=== PATIENT | male | born 1985 | race Caucasian/White ===

== ENCOUNTER 2018-09-24 20:50 | Emergency (ER) | payer BC ==
--- NOTE | 2018-09-24 21:08 | EDM.PDOC ---
ED HPI GENERAL MEDICAL PROBLEM - General Chief Complaint: Upper Extremity Injury/Pain Stated Complaint: JOINT PAIN Time Seen by Provider: 09/24/18 20:55 Source of Information: Reports: Patient History Limitations: Reports: No Limitations - History of Present Illness INITIAL COMMENTS - FREE TEXT/NARRATIVE: According to patient he claims that his knees and ankles have been hurting for past 3 days.rates is pain at 3/10. No swelling of the joints. Today he has been having pain in the nape of his neck and also back muscle hurts. 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 No fever or chills. 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 Pt was treated for lymes in 2014. Onset Date: 09/21/18 Duration: Day(s): (3) Location: Reports: Lower Extremity, Left, Lower Extremity, Right Quality: Reports: Ache Severity: Mild Improves with: Reports: None Worsens with: Reports: None Associated Symptoms: Denies: Confusion, Chest Pain, Cough, Diaphoresis, Fever/ Chills, Headaches, Nausea/Vomiting, Rash, Seizure, Shortness of Breath, Syncope , Weakness - Related Data Allergies Allergy/AdvReac Type Severity Reaction Status Date / Time No Known Allergies Allergy Verified 09/24/18 21:14 Home Meds: Home Meds NK [No Known Home Meds] 09/24/18 [History] Review of Systems - Review of Systems Review Of Systems: See Below Constitutional: Denies: Chills, Fever, Weakness Eyes: Denies: Vision Change Ears: Denies: Pain Nose: Denies: Pain, Purulent Discharge Mouth/Throat: Denies: Pain, Throat Swelling Respiratory: Denies: Shortness of Breath, Pleuritic Chest Pain, Cough, Sputum Cardiovascular: Denies: Chest Pain, Syncope GI/Abdominal: Denies: Abdominal Pain, Nausea, Vomiting Genitourinary: Denies: Dysuria, Hematuria Musculoskeletal: Reports: Joint Pain, Muscle Pain. Denies: Joint Swelling, Muscle Stiffness Skin: Denies: Bruising, Pruritis, Rash Neurological: Denies: Confusion, Dizziness, Headache, Numbness, Tingling ED EXAM, GENERAL - Physical Exam Exam: See Below Exam Limited By: No Limitations General Appearance: Alert, WD/WN, No Apparent Distress Eye Exam: Bilateral Eye: EOMI, PERRL Ears: Normal External Exam, Normal Canal, Hearing Grossly Normal, Normal TMs Ear Exam: Bilateral Ear: Auricle Normal, Canal Normal, TM normal Nose: Normal Inspection, Normal Mucosa, No Blood Throat/Mouth: Normal Inspection, Normal Lips, Normal Teeth, Normal Gums, Normal Oropharynx, Normal Voice, No Airway Compromise Head: Atraumatic, Normocephalic Neck: Normal Inspection, Supple, Non-Tender, Full Range of Motion Respiratory/Chest: No Respiratory Distress, Lungs Clear, Normal Breath Sounds, No Accessory Muscle Use, Chest Non-Tender Cardiovascular: Normal Peripheral Pulses, Regular Rate, Rhythm, No Edema, No Gallop, No JVD, No Murmur, No Rub GI/Abdominal: Normal Bowel Sounds, Soft, Non-Tender, No Organomegaly, No Distention, No Abnormal Bruit, No Mass Extremities: Normal Inspection, Normal Range of Motion, Non-Tender, Normal Capillary Refill, No Pedal Edema Course - Vital Signs Text/Narrative:: Pt is 33 year old male, presents with lower extremity joint pain. Also has neck and back pain. I do not see any signs of inflammation int he joints. No effusion. His CBC is normal. 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 Pt does under stand and agrees with the plan. Side effects discussed with patient. - Orders/Labs/Meds Labs: Laboratory Tests 09/24/18 Range/Units 21:02 WBC 10.0 (4.0-11.0) K/uL RBC 5.59 (4.50-6.50) M/uL Hgb 16.0 (13.0-18.0) g/dL Hct 46.0 (40.0-54.0) % MCV 82 (76-96) fL MCH 28.6 (27.0-32.0) pg MCHC 34.8 (31.0-35.0) g/dL RDW 13.0 (11.0-16.0) % Plt Count 224 (150-400) K/uL MPV 9.7 (6.0-10.0) fL Neut % (Auto) 53.5 (45.0-70.0) % Lymph % (Auto) 34.2 (20.0-40.0) % [place] % (Auto) 8.9 (3.0-10.0) % Eos % (Auto) 3.1 (1.0-5.0) % Baso % (Auto) 0.3 (0.0-0.5) % Neut # (Auto) 5.35 (2.00-7.50) K/uL Lymph # (Auto) 3.42 (1.50-4.00) K/uL [place] # (Auto) 0.89 H (0.20-0.80) K/uL Eos # (Auto) 0.31 (0.04-0.40) K/uL Baso # (Auto) 0.03 (0.02-0.10) K/uL Departure - Departure Time of Disposition: 21:30 Disposition: Home, Self-Care 01 Condition: Fair Clinical Impression: Arthralgia - Discharge Information *PRESCRIPTION DRUG MONITORING PROGRAM REVIEWED*: Not Applicable *COPY OF PRESCRIPTION DRUG MONITORING REPORT IN PATIENT DAX: Not Applicable Forms: ED Department Discharge Additional Instructions: Pt is 33 year old male, presents with lower extremity joint pain. Also has neck and back pain. I do not see any signs of inflammation int he joints. No effusion. His CBC is normal. 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 Pt does under stand and agrees with the plan. Side effects discussed with patient. - Problem List & Annotations (1) Arthralgia SNOMED Code(s): 21429679 Code(s): M25.50 - PAIN IN UNSPECIFIED JOINT Status: Acute - Problem List Review Problem List Initiated/Reviewed/Updated: Yes - Assessment/Plan Assessment:: Arthralgia Plan: Pt is 33 year old male, presents with lower extremity joint pain. Also has neck and back pain. I do not see any signs of inflammation int he joints. No effusion. His CBC is normal. 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 Pt does under stand and agrees with the plan. Side effects discussed with patient.
[2018-09-24] MEDS ORDERED: Doxycycline 100 MG Cap ONE (21:10)
== END 2018-09-24 21:36 | disposition home or self-care (01) ==
LOC: LB.ED 20:50
DX: M25.571 Pain in right ankle and joints of right foot (principal); M25.572 Pain in left ankle and joints of left foot; M25.561 Pain in right knee; M25.562 Pain in left knee; M54.2 Cervicalgia; M54.9 Dorsalgia, unspecified
CPT/HCPCS: 36415; 85025; 99283; A9270